=== PATIENT | male | born 1950 | race Caucasian/White ===

== ENCOUNTER 2019-03-11 17:38 | Emergency (ER) | payer MEDICARE, OTHER ==
[2019-03-11 17:55] VITALS: BP 131/77; PULSE 76
[2019-03-11] MEDS ORDERED: cefTRIAXone 2 GM in Sodium Chloride 0.9% 100 ML IV ONE (18:11)
[2019-03-11] MEDS ORDERED: Sodium Chloride 0.9% 10 ML Syringe FLUSH PRN (18:11)
[2019-03-11] MEDS ORDERED: Amoxicillin/Clavulanate K 875-125 MG Tab PO ONE (18:12)
[2019-03-11] MEDS ORDERED: HYDROmorphone 0.5 MG/0.5 ML Syringe IVPUSH ONE ×2 (18:12→19:10)
[2019-03-11] MEDS ORDERED: Ondansetron 4 MG/2 ML SDV IVPUSH ONE (18:12)
--- NOTE | 2019-03-11 18:16 | EDM.PDOC ---
ED HPI GENERAL MEDICAL PROBLEM - General Chief Complaint: Bite:Animal, Insect Stated Complaint: CAT BITE INFECTED Time Seen by Provider: 03/11/19 17:50 Source of Information: Reports: Patient, RN Notes Reviewed History Limitations: Reports: No Limitations - History of Present Illness INITIAL COMMENTS - FREE TEXT/NARRATIVE: Patient is a 68-year-old male who presents to the ED for evaluation of cat bites. He notes that Tuesday night he received some cat bites and scratches from their own cat. He went to the walk-in clinic yesterday and was prescribed a Z-Matt and some hydrocodone for pain management, but he states this is not helping at all. He was not able to sleep much at all due to the pain, and he noticed that the swelling is much more prominent today than it was yesterday. He states that his whole hand is throbbing and aching and he's noticed some redness moving up the arm with the pain moving up the arm as well. This does not extend past the elbow at this time. They note that their cat is up-to-date on its immunizations. Patient has not had any sort of fevers or chills at home , but he states he feels flushed. Right Hand Pain Score (Numeric/FACES): 10 - Related Data Allergies Allergy/AdvReac Type Severity Reaction Status Date / Time tramadol Allergy Disorientat Verified 10/04/16 13:26 ion morphine AdvReac Vomiting Verified 10/04/16 13:26 Home Meds: Home Meds Tamsulosin [Flomax] 1 tab PO DAILY 11/21/15 [History] Famotidine 20 mg PO BID 07/22/16 [History] Metoprolol Tartrate [Lopressor] 25 mg PO Q12HR 07/22/16 [History] amLODIPine [Norvasc] 5 mg PO DAILY 07/22/16 [History] atorvaSTATin [Lipitor] 40 mg PO BEDTIME 07/22/16 [History] Aspirin [[place] Aspirin] 81 mg PO DAILY 08/17/16 [History] Amoxicillin/Clavulanate K [Augmentin 875-125 MG] 1 tab PO BID #14 tablet [Rx] Past Medical History HEENT History: Reports: Cataract, Impaired Vision Cardiovascular History: Reports: Hypertension Other Cardiovascular History: Mild MR Gastrointestinal History: Reports: Diverticulosis Genitourinary History: Reports: UTI, Recurrent Other Musculoskeletal History: left hip pain. metatarsalgia right foot - 4 lumbar herniated disc Other Neuro History: Bilateral leg pain Endocrine/Metabolic History: Reports: Other (See Below) Other Endocrine/Metabolic History: prediabetes Oncologic (Cancer) History: Reports: Basal Cell Carcinoma Other Oncologic History: removal on nose - Infectious Disease History Infectious Disease History: Reports: Measles, Mumps - Past Surgical History HEENT Surgical History: Reports: Cataract Surgery, Tonsillectomy Cardiovascular Surgical History: Reports: None GI Surgical History: Reports: Colonoscopy, Hernia, Inguinal Musculoskeletal Surgical History: Reports: Joint Replacement Social & Family History - Family History Cardiac: Reports: CAD Other Cardiac Family History: father with CAD and brother with heart disease Other Oncologic Family History: brother with cancer - Tobacco Use Smoking Status *Q: Former Smoker Used Tobacco, but Quit: Yes Month/Year Tobacco Last Used: 3 - Caffeine Use Caffeine Use: Reports: Coffee, Soda, Tea - Recreational Drug Use Recreational Drug Use: No ED ROS GENERAL - Review of Systems Review Of Systems: See Below Constitutional: Denies: Fever, Chills HEENT: Reports: No Symptoms Respiratory: Denies: Shortness of Breath Cardiovascular: Denies: Chest Pain Endocrine: Reports: No Symptoms GI/Abdominal: Reports: Nausea. Denies: Abdominal Pain, Constipation, Diarrhea, Vomiting Musculoskeletal: Reports: Arm Pain (Right arm and hand) Skin: Reports: Erythema (R hand, with streaks extending up dorsum of forearm, these do not extend pass the elbow. 2+ swelling to dorsum of R hand.), Wound ( multiple healing cat scratches and bite wounds) Neurological: Denies: Numbness, Tingling Psychiatric: Reports: No Symptoms Hematologic/Lymphatic: Reports: No Symptoms ED EXAM, ANIMAL BITE - Physical Exam Exam: See Below Exam Limited By: No Limitations General Appearance: Alert, WD/WN, No Apparent Distress Respiratory/Chest: No Respiratory Distress, Lungs Clear, Normal Breath Sounds, No Accessory Muscle Use, Chest Non-Tender Cardiovascular: Normal Peripheral Pulses, Regular Rate, Rhythm, No Murmur Peripheral Pulses: 3+: Radial (L), Radial (R) Extremities: Normal Capillary Refill, Limited Range of Motion (of right hand d/ t pain and swelling.), Increased Warmth (R hand), Redness (R hand dorsum with streaks extending into forearm, these do not pass the elbow at this time.) Neurological: Alert, Oriented, Normal Cognition, No Motor/Sensory Deficits Psychiatric: Normal Affect, Normal Mood Skin Exam: Other (See extremities assessment) Course - Vital Signs Last Recorded V/S: Last Vital Signs Temp 98.6 F 03/11/19 17:54 Pulse 76 03/11/19 17:54 Resp 20 03/11/19 17:54 BP 131/77 03/11/19 17:54 Pulse Ox 93 L 03/11/19 17:54 - Orders/Labs/Meds Orders: Active Orders 24 hr Category Date Time Status Peripheral IV Care [RC] . DIRECTED Care 03/11/19 18:11 Ordered Sodium Chloride 0.9% [Saline Flush] Med 03/11/19 18:11 Ordered 10 ml FLUSH ASDIRECTED PRN Peripheral IV Insertion Adult [OM.PC] Stat Oth 03/11/19 18:11 Ordered Medication Orders Sodium Chloride (Saline Flush) 10 ml FLUSH ASDIRECTED PRN PRN Reason: Keep Vein Open Last Admin: 03/11/19 18:32 Dose: 10 ml Meds: Medications Generic Name Dose Route Start Last Admin Trade Name Freq PRN Reason Stop Dose Admin Sodium Chloride 10 ml 03/11/19 18:11 03/11/19 18:32 Saline Flush FLUSH 10 ml ASDIRECTED PRN Administration Keep Vein Open Discontinued Medications Generic Name Dose Route Start Last Admin Trade Name Freq PRN Reason Stop Dose Admin Amoxicillin/Clavulanate Potassium 1 tab 03/11/19 18:12 03/11/19 18:32 Augmentin 875 Mg/125 Mg PO 03/11/19 18:13 1 tab ONETIME ONE Administration Hydromorphone HCl 0.5 mg 03/11/19 18:12 03/11/19 18:32 Dilaudid IVPUSH 03/11/19 18:13 0.5 mg ONETIME ONE Administration Hydromorphone HCl 0.5 mg 03/11/19 19:10 Dilaudid IVPUSH 03/11/19 19:11 ONETIME ONE Ceftriaxone Sodium 2 gm/ 100 mls @ 200 mls/hr 03/11/19 18:11 03/11/19 18:32 Sodium Chloride IV 03/11/19 18:40 200 mls/hr ONETIME ONE Administration Ondansetron HCl 4 mg 03/11/19 18:12 03/11/19 18:34 Zofran IVPUSH 03/11/19 18:13 4 mg ONETIME ONE Administration - Re-Assessments/Exams Free Text/Narrative Re-Assessment/Exam: 03/11/19 18:19 Patient presents to the ED for evaluation of multiple Bites and scratches of his right hand. His dorsum of his right hand is impressively swollen, I appreciated at least a 2+ edema to the dorsum of the right hand. There are multiple cat bites and scratches that look as if they are healing. With red streaks extending up his arm but not passing the elbow. I will start an IV, give one dose of Rocephin, 2 g IV for initial management, 0.5 mg IV Dilaudid with 4 mg IV Zofran, and 1 tab of Augmentin PO. His allergy to morphine was vomiting. Will have him stop the azithromycin, and place him on Augmentin twice a day for 8 days, he will be given a prescription for oxycodone versus hydrocodone as he does not seem to respond to the hydrocodone medication. 03/11/19 19:11 Patient was reassessed at bedside, and states that he feels much better, and that the pain medication did wonders, however he is still having a little bit of pain, I did order another 0.5 mg of IV Dilaudid for pain relief, will send the patient home with a prescription for Augmentin, and oxycodone tablets for further pain relief. I have directed him if he does not notice the swelling and redness getting better in 2 days time, that he needs to seek care for reevaluation, he agrees and understands. Departure - Departure Time of Disposition: 19:15 Disposition: Home, Self-Care 01 Condition: Fair Clinical Impression: Infected cat bite of multiple sites of hand and fingers Qualifiers: Encounter type: initial encounter Laterality: right Qualified Code(s): S61.451A - Open bite of right hand, initial encounter; S61.259A - Open bite of unspecified finger without damage to nail, initial encounter; L08.9 - Local infection of the skin and subcutaneous tissue, unspecified; W55.01XA - Bitten by cat, initial encounter - Discharge Information *PRESCRIPTION DRUG MONITORING PROGRAM REVIEWED*: No *COPY OF PRESCRIPTION DRUG MONITORING REPORT IN PATIENT LAURA: No Prescriptions: Amoxicillin/Clavulanate K [Augmentin 875-125 MG] 1 tab PO BID #14 tablet Instructions: Animal Bite, Adult, [id number] Referrals: Myra Rhodes MD [Primary Care Provider] - Forms: ED Department Discharge Additional Instructions: You were evaluated in the ED today for your cat bite. You were given a dose of IV antibiotics, a dose of oral antibiotics, a IV pain medication and antinausea medication, this did seem to relieve some of your pain at this time. Please stop taking the Zithromax as previously prescribed, and start taking the Augmentin, 1 tab twice a day for 7 days. This antibiotic is well known for causing diarrhea, recommend to take a probiotic when taking this antibiotic. Was electronically sent to the [place] [facility] located in the [employer] store, you may pick this up tomorrow morning and continue taking this as directed. You were given a prescription for Percocet, 5/325, please take one tab every 6 hours as needed for further pain relief. If your swelling and/or redness are not getting much better in about 2 days time , or you develop any worsening symptoms like fevers or chills, increased nausea and vomiting, you will need to seek care for re-evaluation. Please return to the ED if your symptoms change or worsen. - My Orders Last 24 Hours: My Active Orders 03/11/19 18:11 Peripheral IV Care [RC] . DIRECTED Sodium Chloride 0.9% [Saline Flush] 10 ml FLUSH ASDIRECTED PRN Peripheral IV Insertion Adult [OM.PC] Stat - Assessment/Plan Last 24 Hours: My Active Orders 03/11/19 18:11 Peripheral IV Care [RC] . DIRECTED Sodium Chloride 0.9% [Saline Flush] 10 ml FLUSH ASDIRECTED PRN Peripheral IV Insertion Adult [OM.PC] Stat
== END 2019-03-11 19:30 | disposition home or self-care (01) ==
LOC: JD.ED 17:38
DX: S61.451A Open bite of right hand, initial encounter (principal); S61.259A Open bite of unspecified finger without damage to nail, initial encounter; L08.9 Local infection of the skin and subcutaneous tissue, unspecified; I10 Essential (primary) hypertension; F79 Unspecified intellectual disabilities; Z88.5 Allergy status to narcotic agent; Z85.9 Personal history of malignant neoplasm, unspecified; Z79.899 Other long term (current) drug therapy; Z79.82 Long term (current) use of aspirin; Z87.891 Personal history of nicotine dependence; W55.01XA Bitten by cat, initial encounter
CPT/HCPCS: 96365; 96375; 96376; 99283; A9270; J0696; J1170; J2405; J7030; 99284

== ENCOUNTER 2021-02-21 20:50 | Emergency (ER) | payer MEDICARE, OTHER ==
[2021-02-21 21:32] VITALS: BP 160/85; PULSE 80
[2021-02-21] MEDS ORDERED: methylPREDNISolone Sodium Succinate 125 MG/2 ML SDV IVPUSH ONE (21:42)
[2021-02-21] MEDS ORDERED: HYDROmorphone 0.5 MG/0.5 ML Syringe IVPUSH ONE ×2 (21:42→23:05)
[2021-02-21] MEDS ORDERED: Sodium Chloride 0.9% 10 ML Syringe FLUSH PRN (21:42)
[2021-02-21] MEDS ORDERED: Metoclopramide 10 MG/2 ML SDV IVPUSH ONE (21:43)
[2021-02-21] MEDS ORDERED: Ketorolac 30 MG/ML SDV IVPUSH SCH (21:45)
--- NOTE | 2021-02-21 21:45 | EDM.PDOC ---
ED HPI GENERAL MEDICAL PROBLEM - General Chief Complaint: Lower Extremity Injury/Pain Stated Complaint: LEFT ANKLE PAIN Time Seen by Provider: 02/21/21 21:36 Source of Information: Reports: Patient, Family (spouse) History Limitations: Reports: No Limitations - History of Present Illness INITIAL COMMENTS - FREE TEXT/NARRATIVE: 70-year-old male presents to the ED with acute severe left ankle pain. He states he rolled it slightly i.e. inversion injury while mowing the lawn yesterday but thought nothing of it. In fact he was able to continue mowing the lawn and walking normally until overnight when the pain in his left ankle became severe. He is unable to weight-bear at all and comes in on crutches. He gives a history of recurrent arthritic pain in both ankles and feet off and on for many years. He has never been diagnosed with gout. Onset: Today Onset Date: 02/21/21 Onset Time: 06:00 (Awoke with left ankle pain that is gradually progressed to severe pain with swelling bilaterally over the last 12 hours.) Duration: Hour(s):, Getting Worse Location: Reports: Lower Extremity, Left (Left ankle pain and swelling) Quality: Reports: Ache, Throbbing Severity: Severe Improves with: Reports: None, Rest Worsens with: Reports: Movement (Him to a move the ankle I dorsiflex or plantar flex causes severe pain rating up the anterior aspect of his suresh.) Context: Reports: Trauma (History of mild trauma yesterday with mild inversion of the ankle while mowing the lawn). Denies: Activity ( He comes in on crutches unable to weight-bear), Exercise, Lifting, Sick Contact, Other Associated Symptoms: Reports: No Other Symptoms Treatments POLICE SPECIALIST: Reports: Acetaminophen Left Ankle Pain Score (Numeric/FACES): 10 - Related Data Allergies Allergy/AdvReac Type Severity Reaction Status Date / Time tramadol Allergy Disorientat Verified 02/21/21 21:32 ion morphine AdvReac Vomiting Verified 02/21/21 21:32 Home Meds: Home Meds Tamsulosin [Flomax] 1 tab PO DAILY 11/21/15 [History] Famotidine 20 mg PO BID 07/22/16 [History] Metoprolol Tartrate [Lopressor] 25 mg PO DAILY 07/22/16 [History] amLODIPine [Norvasc] 5 mg PO DAILY 07/22/16 [History] atorvaSTATin [Lipitor] 40 mg PO BEDTIME 07/22/16 [History] Aspirin [[place] Aspirin] 81 mg PO DAILY 08/17/16 [History] oxyCODONE HCl/Acetaminophen [Percocet 5-325 mg Tablet] 1 - 2 each PO Q4H PRN #18 tablet 02/21/21 [Rx] predniSONE [Prednisone] 20 mg PO BID #10 tablet 02/21/21 [Rx] Past Medical History HEENT History: Reports: Cataract, Impaired Vision Cardiovascular History: Reports: Bypass (Triple bypass at the same time his valve replacement in 2017), Heart Valve Replacement (Aortic valve replaced), High Cholesterol, Hypertension, Other (See Below) Other Cardiovascular History: Mild MR, valve replacement Gastrointestinal History: Reports: Diverticulosis, GERD Genitourinary History: Reports: UTI, Recurrent, Other (See Below) Other Genitourinary History: fistula repair Other Musculoskeletal History: left hip pain. metatarsalgia right foot - 4 lumbar herniated disc Other Neuro History: Bilateral leg pain Endocrine/Metabolic History: Reports: Other (See Below) Other Endocrine/Metabolic History: prediabetes Oncologic (Cancer) History: Reports: Basal Cell Carcinoma Other Oncologic History: removal on nose - Infectious Disease History Infectious Disease History: Reports: Measles, Mumps - Past Surgical History HEENT Surgical History: Reports: Cataract Surgery, Tonsillectomy Cardiovascular Surgical History: Reports: None GI Surgical History: Reports: Colonoscopy, Hernia, Inguinal Musculoskeletal Surgical History: Reports: Joint Replacement Other Musculoskeletal Surgeries/Procedures:: right total knee replacement, right elbow repair Social & Family History - Family History Family Medical History: No Pertinent Family History Cardiac: Reports: CAD Other Cardiac Family History: father with CAD and brother with heart disease Other Oncologic Family History: brother with cancer - Tobacco Use Tobacco Use Status *Q: Never Tobacco User Second Hand Smoke Exposure: No - Caffeine Use Caffeine Use: Reports: Coffee - Alcohol Use Days Per Week of Alcohol Use: 1 Number of Drinks Per Day: 2 Total Drinks Per Week: 2 - Recreational Drug Use Recreational Drug Use: No - Living Situation & Occupation Living situation: Reports: Occupation: Retired Review of Systems - Review of Systems Review Of Systems: See Below Constitutional: Denies: Chills, Diaphoresis, Fever, Weakness, Other Eyes: Reports: Glasses Ears: Reports: No Symptoms Nose: Reports: No Symptoms Mouth/Throat: Reports: No Symptoms Respiratory: Reports: No Symptoms Cardiovascular: Denies: Chest Pain, Edema, Irregular Heart Rate, Lightheadedness, Other GI/Abdominal: Reports: No Symptoms Genitourinary: Reports: Other (BPH and is on medication for this. Nocturia x1) Musculoskeletal: Reports: Joint Pain (Arthritis knees hips lower back and neck at times), Other (Recurrent severe pain developing in both lower extremities off and on for many years.) Skin: Reports: No Symptoms Neurological: Reports: No Symptoms Psychiatric: Reports: No Symptoms ED EXAM, GENERAL - Physical Exam Exam: See Below Exam Limited By: No Limitations General Appearance: Alert, WD/WN, Mild Distress, Other (In obvious significant pain. Temperature is 36.1 degrees with a heart rate of 80 and sinus. Respiratory is 20 with O2 sats of 98% room air. BP is 160/85) Eye Exam: Bilateral Eye: Normal Inspection, PERRL Respiratory/Chest: No Respiratory Distress, Lungs Clear, Normal Breath Sounds, No Accessory Muscle Use Cardiovascular: Normal Peripheral Pulses, Regular Rate, Rhythm, No Edema, No Gallop, No Rub, Systolic Murmur (Very faint less than 1 out of 6 systolic ejection murmur best heard at the left lower sternal border), Other (Well-healed midline sternotomy incision.) Peripheral Pulses: 2+: Carotid (L), Carotid (R), Posterior Tibial (L), Posterior Tibial (R), Dorsalis Pedis (L), Dorsalis Pedis (R) GI/Abdominal: Normal Bowel Sounds, Soft, Non-Tender, No Organomegaly, No Distention, No Abnormal Bruit Extremities: Other (Examination of the left lower extremity reveals marked swelling bilateral aspect of the ankle which is mildly erythematous bilaterally and very very tender to touch. It is warm to palpation compatible with acute inflammation of gout) Neurological: Alert, Oriented, CN II-XII Intact, Normal Cognition Psychiatric: Anxious, Other Skin Exam: Warm (In a good deal of pain.), Dry, Intact, Normal Color, No Rash Course - Vital Signs Last Recorded V/S: Last Vital Signs Temp 36.1 C 02/21/21 21: Pulse 80 02/21/21 21:31 Resp 20 02/21/21 21: BP 160/85 H 09/18/21 21:31 Pulse Ox 98 02/21/21 21:31 - Orders/Labs/Meds Orders: Active Orders 24 hr Category Date Time Status Ankle Min 3V Lt [CR] Stat Exams 02/21/21 21:43 Taken Peripheral IV Insertion Adult [OM.PC] Stat Oth 02/21/21 21:42 Ordered Labs: Laboratory Tests 02/21/21 02/21/21 Range/Units 22:35 22:35 WBC 11.98 H (4.23-9.07) K/mm3 RBC 4.33 L (4.63-6.08) M/mm3 Hgb 13.5 L (13.7-17.5) gm/dl Hct 40.2 (40.1-51.0) % MCV 92.8 H (79.0-92.2) fl MCH 31.2 (25.7-32.2) pg MCHC 33.6 (32.2-35.5) g/dl RDW Std Deviation 45.9 H (35.1-43.9) fL Plt Count 165 (163-337) K/mm3 MPV 10.1 (9.4-12.3) fl Neut % (Auto) 70.0 H (34.0-67.9) % Lymph % (Auto) 16.4 L (21.8-53.1) % [place] % (Auto) 11.6 (5.3-12.2) % Eos % (Auto) 1.5 (0.8-7.0) Baso % (Auto) 0.3 (0.1-1.2) % Neut # (Auto) 8.39 H (1.78-5.38) K/mm3 Lymph # (Auto) 1.96 (1.32-3.57) K/mm3 [place] # (Auto) 1.39 H (0.30-0.82) K/mm3 Eos # (Auto) 0.18 (0.04-0.54) K/mm3 Baso # (Auto) 0.04 (0.01-0.08) K/mm3 Sodium 137 (136-145) mEq/L Potassium 4.1 (3.5-5.1) mEq/L Chloride 104 (98-107) mEq/L Carbon Dioxide 26 (21-32) mEq/L Anion Gap 11.1 (5-15) BUN 16 (7-18) mg/dL Creatinine 0.9 (0.7-1.3) mg/dL Est Cr Clr Drug Dosing 86.26 mL/min Estimated GFR (MDRD) > 60 (>60) mL/min BUN/Creatinine Ratio 17.8 (14-18) Glucose 118 H (70-99) mg/dL Uric Acid 6.9 (3.5-7.2) mg/dL Calcium 8.2 L (8.5-10.1) mg/dL Total Bilirubin 0.3 (0.2-1.0) mg/dL AST 21 (15-37) U/L ALT 27 (16-63) U/L Alkaline Phosphatase 62 (46-116) U/L C-Reactive Protein 0.7 (<1.0) mg/dL Total Protein 6.9 (6.4-8.2) g/dl Albumin 3.3 L (3.4-5.0) g/dl Globulin 3.6 gm/dL Albumin/Globulin Ratio 0.9 L (1-2) Meds: Medications Discontinued Medications Generic Name Dose Route Start Last Admin Trade Name Freq PRN Reason Stop Dose Admin Colchicine 0.6 mg 02/21/21 21:49 02/21/21 22:24 Colchicine 0.6 Mg Tab PO 02/21/21 21:50 0.6 mg ONETIME ONE Administration Colchicine 0.6 mg 02/21/21 23:02 02/21/21 23:11 Colchicine 0.6 Mg Tab PO 02/21/21 23:03 0.6 mg ONETIME ONE Administration Colchicine 0.6 mg 02/21/21 23:32 02/21/21 23:41 Colchicine 0.6 Mg Tab PO 02/21/21 23:33 0.6 mg ONETIME ONE Administration Hydromorphone HCl 0.5 mg 02/21/21 21:42 02/21/21 22:19 Hydromorphone 0.5 Mg/0.5 Ml Syringe IVPUSH 02/21/21 21:43 0.5 mg ONETIME ONE Administration Hydromorphone HCl 0.5 mg 02/21/21 23:05 02/21/21 23:10 Hydromorphone 0.5 Mg/0.5 Ml Syringe IVPUSH 02/21/21 23:06 0.5 mg ONETIME ONE Administration Ketorolac Tromethamine 30 mg 02/21/21 21:45 02/21/21 22:24 Ketorolac 30 Mg/Ml Sdv IVPUSH 30 mg ONETIME STAN Administration Methylprednisolone Sodium Succinate 125 mg 02/21/21 21:42 02/21/21 22:21 Methylprednisolone Sodium Succinate 125 Mg/2 Ml Sdv IVPUSH 02/21/21 21:43 125 mg ONETIME ONE Administration Metoclopramide HCl 7.5 mg 02/21/21 21:43 02/21/21 22:21 Metoclopramide 10 Mg/2 Ml Sdv IVPUSH 02/21/21 21:44 7.5 mg ONETIME ONE Administration Sodium Chloride 10 ml 02/21/21 21:42 02/21/21 22:25 Sodium Chloride 0.9% 10 Ml Syringe FLUSH 10 ml ASDIRECTED PRN Administration Keep Vein Open - Radiology Interpretation Free Text/Narrative:: 70-year-old male presents to the ED with acute onset of severe pain left ankle with marked swelling bilaterally. He states yesterday while mowing the lawn he had a mild inversion injury to the left ankle. He thought nothing of it and was able to continue mowing the lawn and walking. Pain developed overnight and was severe by 0600 hrs. this morning. Since that time the pain is even worsened as has the swelling of his left ankle. He cannot walk on it at all and comes in on crutches. Gives a history of recurrent similar type pains in both ankles and feet off and on for many years. Blamed it on arthritis flares. On examination the left ankle is markedly swollen both medially and laterally. He has severe pain with any attempt to dorsiflex or plantarflex the ankle. No pain over the metacarpal joints. No pain of the distal tib-fib. Clinically has acute gouty arthritis left ankle. He will receive intravenous medications Dilaudid 0.5 mg IV with Toradol 30 mg IV and Reglan 7.5 mg IV. He will receive first dose of cord colchicine 0.6 mg orally in the ED. He will also be given a dose of Solu- Medrol 125 mg IV. An x-ray of his ankle will be done. - Re-Assessments/Exams Free Text/Narrative Re-Assessment/Exam: 02/21/21 22:55 Hematology reveals a white count 11.98. The differential shows 70% neutrophils. Hemoglobin is 13.5 with hematocrit of 40.2. MCV is 92.8 sli ghtly elevated. Platelet count is 165,000. 02/21/21 23:05 x-rays of the left ankle reveal the bones to be fairly osteopenic. No fractures are identified although there are several old fractures of the distal lateral malleolus from previous injuries. We will repeat Dilaudid 0.5 mg IV for pain relief and he will receive second dose of colchicine 0.6 mg by mouth. Plan will be to send him home with a third dose of colchicine 0.6 mg to take in an hour. Percocet tabs 5 to 25 mg strength 1 or 2 every 4-6 hours needed for pain relief. Prednisone 20 mg twice daily for 5 days and then once in the morning only for another 5 days. Motrin 600 mg every 6 hours to relieve pain and inflammation until better. He already has crutches and will be nonweightbearing until able to weight-bear which will likely be 72 hours. 02/21/21 23:42 Chemistry reveals a sodium of 137 and potassium of 4.1. Chloride is 1 4 with a bicarb of 26. Anion gap is 11.1. BUN is 16 with a creatinine of 0.9 and a GFR greater than 60. Glucose is 118. Uric acid is normal at 6.9. Calcium slightly low at 8.2 liver function is normal. C- reactive protein 0.7 with a total protein of 6.9 and albumin fraction of 3.3. I have discussed the findings with the patient and his . Ankle is feeling better after second dose of Dilaudid. He has completed 3 doses of colchicine 0.6 mg by mouth. He will be discharged home on prednisone 20 mg twice daily for 5 days out of the [employer] machine and Percocet tabs 5/325 mg strength 1 or 2 every 4-6 hours necessary for pain relief over the next few days. Advised Motrin 600 mg every 6 hours until pain is better ideally switching to Aleve 2 tablets every 8 hours to complete a 7-day course of anti-inflammatory treatment. He needs a repeat uric acid level done when he is not experiencing an acute gout attack to see if he would benefit from medication to reduce uric acid formation such as Uloric acid or allopurinol. Departure - Departure Time of Disposition: 23:36 Disposition: Home, Self-Care 01 Condition: Fair Clinical Impression: Gout attack Qualifiers: Gout site: ankle Gout etiology: unspecified cause Laterality: left Qualified C ode(s): M10.9 - Gout, unspecified - Discharge Information *PRESCRIPTION DRUG MONITORING PROGRAM REVIEWED*: Not Applicable *COPY OF PRESCRIPTION DRUG MONITORING REPORT IN PATIENT LAURA: Not Applicable Prescriptions: oxyCODONE HCl/Acetaminophen [Percocet 5-325 mg Tablet] 1 - 2 each PO Q4H PRN #18 tablet PRN Reason: pain relief. predniSONE [Prednisone] 20 mg PO BID #10 tablet Instructions: Crutch Use, Adult, [id number], Low-Purine Eating Plan, Gout, [id number] Referrals: Myra Rhodes MD [Primary Care Provider] - Forms: ED Department Discharge Additional Instructions: Evaluation in the emergency room tonight in regards to acute onset of severe pain and swelling with increased warmth and tenderness of the left ankle joint after minor trauma yesterday. History suggest you have had recurrent bouts of inflammation in your ankles and feet several times over the last several years. Examination today reveals acute gouty arthritis attack involving the left ankle causing severe pain. X-rays of the left foot reveal that the bones are relatively thin which we call osteopenia but no fractures are evident other than some old minor fractures off the lateral ankle bone from previous injuries. You were treated with colchicine 0.6 mg tablet 1 every hour for 3 consecutive hours . You took the last tablet just prior to leaving the ER tonight. You will need to start prednisone 20 mg tablets in the morning usually with breakfast and supper for 5 days to relieve inflammation and pain left ankle. Pain medication is to be Percocet tabs 5/325 mg strength 1 or 2 every 4-6 hours as needed for pain relief with little food in your stomach. Use Motrin 600 mg every 6 hours for 3 days and then 600 mg every 8 hours or Aleve 2 tablets every 8 hours for 4 more days to prevent gout from reoccurring. Expect marked improvement over the next 24 hours such as 70% reduction in pain and swelling 90% within the next 48 hours. Uric acid level today was upper limits of normal at 6.9 but it often does go lower during an acute gout attack. The next time you need lab work done in the clinic asked to have a uric acid level checked. Sepsis Event Note (ED) - Focused Exam Vital Signs: Vital Signs Temp Pulse Resp BP Pulse Ox 02/21/21 21:31 36.1 C 80 20 160/85 H 98 - My Orders Last 24 Hours: My Active Orders 02/21/21 21:42 Peripheral IV Insertion Adult [OM.PC] Stat 02/21/21 21:43 Ankle Min 3V Lt [CR] Stat - Assessment/Plan Last 24 Hours: My Active Orders 02/21/21 21:42 Peripheral IV Insertion Adult [OM.PC] Stat 02/21/21 21:43 Ankle Min 3V Lt [CR] Stat
[2021-02-21] MEDS ORDERED: Colchicine 0.6 MG Tab PO ONE ×3 (21:49→23:32)
--- NOTE | 2021-02-22 16:33 | CR ---
Left ankle: 3 views of the left ankle were obtained. Comparison: No prior left ankle study is available. Joint space narrowing is seen within the lateral tibiotalar joint. Slight spurring is noted within the tibiotalar joint. Bony densities are noted off the medial malleolus compatible with old injury. Bony density is seen off the distal fibula compatible with old injury. Calcifications are seen within the soft tissues above the ankle presumably dystrophic. Slight osteopenia is present. No definite acute osseous abnormality is appreciated. Diffuse soft tissue swelling is noted. Impression: 1. Degenerative change as noted above. 2. Small dystrophic soft tissue calcifications. 3. Diffuse soft tissue swelling. 4. Findings of old injury as noted above. Diagnostic code #3
== END 2021-02-21 23:58 | disposition home or self-care (01) ==
LOC: JD.ED 20:50
DX: M10.9 Gout, unspecified (principal); E78.00 Pure hypercholesterolemia, unspecified; I10 Essential (primary) hypertension; Z95.1 Presence of aortocoronary bypass graft; Z88.5 Allergy status to narcotic agent; Z79.82 Long term (current) use of aspirin; Z79.899 Other long term (current) drug therapy
CPT/HCPCS: 36415; 73610; 80053; 84550; 85025; 86140; 96374; 96375; 96376; 99283; A9270; J1170; J1885; J2765; J2930

== ENCOUNTER 2021-10-30 13:18 | Emergency (ER) | payer MEDICARE, OTHER ==
[2021-10-30 15:27] VITALS: PULSE 54
[2021-10-30] MEDS ORDERED: Sodium Chloride 0.9% 10 ML Syringe FLUSH PRN (15:30)
[2021-10-30] MEDS ORDERED: EPINEPHrine 1 MG/ML SDV IM PRN (15:31)
[2021-10-30] MEDS ORDERED: Famotidine 20 MG/2 ML SDV IVPUSH PRN (15:31)
[2021-10-30] MEDS ORDERED: methylPREDNISolone Sodium Succinate 125 MG/2 ML SDV IVPUSH PRN (15:31)
[2021-10-30] MEDS ORDERED: diphenhydrAMINE 50 MG/ML SDV IVPUSH PRN (15:31)
[2021-10-30] MEDS ORDERED: Sodium Chloride 0.9% 10 ML Syringe FLUSH SCH (15:45)
[2021-10-30 17:09] VITALS: BP 155/72
== END 2021-10-30 17:14 | disposition home or self-care (01) ==
LOC: JD.ED 13:18
DX: U07.1 COVID-19 (principal); R07.89 Other chest pain; E78.00 Pure hypercholesterolemia, unspecified; I10 Essential (primary) hypertension; Z88.5 Allergy status to narcotic agent; Z79.82 Long term (current) use of aspirin; Z79.899 Other long term (current) drug therapy; Z86.16 Personal history of COVID-19; Z87.891 Personal history of nicotine dependence
CPT/HCPCS: 93005; 99284; J3490; M0222; Q0222; 93010; 99282

== ENCOUNTER 2024-06-26 15:50 | Emergency (ER) | payer MEDICARE, OTHER ==
[2024-06-26 16:17] VITALS: BP 137/81; PULSE 118
[2024-06-26 17:02] LABS: APPEARANCE,URINE CLOUDY (Clear); BILIRUBIN,URINE 1+ (Negative); COLOR,URINE RED (Yellow); GLUCOSE,URINE NEGATIVE (Negative); KETONES,URINE NEGATIVE (Negative); LEUKOCYTE ESTERASE,URINE NEGATIVE (Negative); NITRITE,URINE NEGATIVE (Negative); OCCULT BLOOD,URINE 3+ (Negative); PROTEIN,URINE 3+ (Negative)
[2024-06-26 17:14] LABS: BASOPHILS PERCENT AUTO 0.2 % (0.0-1.0); EOSINOPHILS ABSOLUTE AUTO 0.1 K/mm3 (0.0-0.4); EOSINOPHILS PERCENT AUTO 0.9 % (0.0-6.0); HEMATOCRIT 24.2 % (42.0-52.0); HEMOGLOBIN 8.1 gm/dl (14.0-18.0); IMMATURE GRAN ABSOLUTE AUTO 0.06 K/mm3 (0.00-0.05); IMMATURE GRAN PERCENT AUTO 0.5 % (0.0-0.4); LYMPHOCYTES ABSOLUTE AUTO 1.3 K/mm3 (1.0-4.8); LYMPHOCYTES PERCENT AUTO 10.3 % (24.0-44.0); MEAN CORPUSCULAR HEMOGLOBIN 30.3 pg (28.0-32.0); MEAN CORPUSCULAR HGB CONC 33.5 g/dl (32.0-36.0); MEAN CORPUSCULAR VOLUME 90.6 fl (83.0-99.0); MEAN PLATELET VOLUME 9.1 fl (9.4-12.4); MONOCYTES ABSOLUTE AUTO 1.8 K/mm3 (0.0-0.8); MONOCYTES PERCENT AUTO 13.8 % (0.0-8.0); NEUTROPHILS ABSOLUTE AUTO 9.6 K/mm3 (1.8-7.7); NEUTROPHILS PERCENT AUTO 74.3 % (41.0-71.0); PLATELET COUNT,PLT 324 K/mm3 (150-400); RED BLOOD CELL COUNT 2.67 M/mm3 (4.52-5.90); WHITE BLOOD CELL COUNT,WBC 12.88 K/mm3 (3.9-11.3)
[2024-06-26 17:41] LABS: RBC,URINE TOO NUMEROUS TO CNT /hpf (0-5); SQUAMOUS EPITHELIAL CELLS,UR 0-5 /hpf (0-5)
[2024-06-26 17:42] LABS: BACTERIA,URINE FEW /hpf (FEW); MUCUS,URINE FEW /hpf (FEW)
[2024-06-26 17:44] LABS: A/G RATIO 0.6 (1-2); ALBUMIN 2.5 g/dl (3.4-5.0); ANION GAP 15.5 (5-15); BILIRUBIN TOTAL 1.1 mg/dL (0.2-1.0); C-REACTIVE PROTEIN 14.88 mg/dL (<0.30); CALCIUM 8.6 mg/dL (8.5-10.1); CREATININE 1.1 mg/dL (0.7-1.3); EST CRCL DRUG DOSING (CG) 65.57 mL/min; POTASSIUM,K 3.5 mEq/L (3.5-5.1); PROTEIN TOTAL,TP 6.5 g/dl (6.4-8.2)
[2024-06-26] MEDS: cefTRIAXone 2 GM in Sodium Chloride 0.9% 100 ML IV ONE (18:06)
[2024-06-26] MEDS: fentaNYL 100 MCG/2 ML SDV IVPUSH ONE ×2 (18:06→19:04)
[2024-06-26] MEDS: Sodium Chloride 0.9% 1,000 ML IV SCH (18:07)
[2024-06-26] MEDS ORDERED: Naloxone 0.4 MG/ML SDV IVPUSH PRN (18:54)
[2024-06-26] MEDS: Bisacodyl 10 MG Supp RECTAL ONE (19:04)
== END 2024-06-26 19:30 | disposition home or self-care (01) ==
LOC: JD.ED 15:50
DX: N39.0 Urinary tract infection, site not specified (principal); R31.9 Hematuria, unspecified; I10 Essential (primary) hypertension; E78.00 Pure hypercholesterolemia, unspecified; Z86.16 Personal history of COVID-19; Z95.2 Presence of prosthetic heart valve; Z88.5 Allergy status to narcotic agent; Z79.82 Long term (current) use of aspirin; Z79.899 Other long term (current) drug therapy
CPT/HCPCS: 36415; 80053; 81001; 83605; 85025; 86140; 87086; 87428-QW; 93005; 96361; 96365; 96375; 96376; 99285-25; A9270-GY; C1758; J0696; J3010; J7030

== ENCOUNTER 2024-06-28 16:37 | Emergency (ER) | payer MEDICARE, OTHER ==
[2024-06-28 16:54] VITALS: BP 130/73; PULSE 113
[2024-06-28] MEDS: Lidocaine 2% 11 ML Jelly Filled Syringe MUCMEM ONE (18:00)
[2024-06-28 18:05] LABS: BASOPHILS ABSOLUTE AUTO 0.1 K/mm3 (0.0-0.2); BASOPHILS PERCENT AUTO 0.3 % (0.0-1.0); EOSINOPHILS ABSOLUTE AUTO 0.3 K/mm3 (0.0-0.4); EOSINOPHILS PERCENT AUTO 1.8 % (0.0-6.0); HEMATOCRIT 23.2 % (42.0-52.0); HEMOGLOBIN 7.9 gm/dl (14.0-18.0); IMMATURE GRAN ABSOLUTE AUTO 0.13 K/mm3 (0.00-0.05); IMMATURE GRAN PERCENT AUTO 0.7 % (0.0-0.4); LYMPHOCYTES ABSOLUTE AUTO 1.6 K/mm3 (1.0-4.8); LYMPHOCYTES PERCENT AUTO 8.9 % (24.0-44.0); MEAN CORPUSCULAR HEMOGLOBIN 30.9 pg (28.0-32.0); MEAN CORPUSCULAR HGB CONC 34.1 g/dl (32.0-36.0); MEAN CORPUSCULAR VOLUME 90.6 fl (83.0-99.0); MEAN PLATELET VOLUME 8.9 fl (9.4-12.4); MONOCYTES ABSOLUTE AUTO 2.1 K/mm3 (0.0-0.8); MONOCYTES PERCENT AUTO 11.3 % (0.0-8.0); RED BLOOD CELL COUNT 2.56 M/mm3 (4.52-5.90); WHITE BLOOD CELL COUNT,WBC 18.16 K/mm3 (3.9-11.3)
[2024-06-28 18:27] LABS: A/G RATIO 0.6 (1-2); ALBUMIN 2.5 g/dl (3.4-5.0); ANION GAP 13.5 (5-15); BUN/CREATININE RATIO 10.6 (14-18); C-REACTIVE PROTEIN 15.84 mg/dL (<0.30); CALCIUM 8.4 mg/dL (8.5-10.1); CREATININE 1.6 mg/dL (0.7-1.3); EST CRCL DRUG DOSING (CG) 45.08 mL/min; PLATELET COUNT,PLT 442 K/mm3 (150-400); POTASSIUM,K 3.5 mEq/L (3.5-5.1); PROTEIN TOTAL,TP 6.4 g/dl (6.4-8.2)
[2024-06-28 18:49] LABS: APPEARANCE,URINE SLT CLOUDY (Clear); BILIRUBIN,URINE NEGATIVE (Negative); COLOR,URINE YELLOW (Yellow); GLUCOSE,URINE NEGATIVE (Negative); KETONES,URINE NEGATIVE (Negative); LEUKOCYTE ESTERASE,URINE NEGATIVE (Negative); NITRITE,URINE NEGATIVE (Negative); OCCULT BLOOD,URINE 3+ (Negative); PROTEIN,URINE 1+ (Negative); UROBILINOGEN,URINE 0.2 (0.2-1.0)
[2024-06-28 18:58] LABS: INR 1.03; PROTHROMBIN TIME 10.9 SECONDS (9.7-12.0)
[2024-06-28 18:59] LABS: PTT,PARTIAL THROMBOPLSTIN TIME 24.9 SECONDS (21.7-31.4)
[2024-06-28 19:04] LABS: BACTERIA,URINE RARE /hpf (FEW); EPITHELIAL CELLS,URINE NOT SEEN /hpf (0-5); MUCUS,URINE NOT SEEN /hpf (FEW); RBC,URINE >100 /hpf (0-5); WBC,URINE 0-5 /hpf (0-5)
[2024-06-28] MEDS: Sodium Chloride 0.9% 1,000 ML IV ONE (19:04)
[2024-06-28] MEDS: Iopamidol 612 MG/ML 100 ML Bottle IVPUSH ONE (19:24)
[2024-06-28] MEDS: cefTRIAXone 2 GM Vial IVPUSH ONE (19:45)
[2024-06-28 20:22] LABS: LACTIC ACID 1.3 mmol/L (0.4-2.0)
[2024-06-28] MEDS ORDERED: Naloxone 0.4 MG/ML SDV IVPUSH PRN (21:25)
[2024-06-28] MEDS: fentaNYL 100 MCG/2 ML SDV IVPUSH ONE (21:33)
[2024-06-29] MEDS: fentaNYL 100 MCG/2 ML SDV IVPUSH ONE (02:05)
[2024-06-29] MEDS: Acetaminophen 325 MG Tab PO ONE (04:42)
[2024-06-29 05:35] LABS: ANION GAP 13.4 (5-15); BUN/CREATININE RATIO 13.3 (14-18); CALCIUM 8.4 mg/dL (8.5-10.1); CREATININE 0.9 mg/dL (0.7-1.3); EST CRCL DRUG DOSING (CG) 80.15 mL/min; POTASSIUM,K 3.4 mEq/L (3.5-5.1)
[2024-06-29 05:36] LABS: BASOPHILS ABSOLUTE AUTO 0.1 K/mm3 (0.0-0.2); BASOPHILS PERCENT AUTO 0.4 % (0.0-1.0); EOSINOPHILS ABSOLUTE AUTO 0.3 K/mm3 (0.0-0.4); EOSINOPHILS PERCENT AUTO 1.8 % (0.0-6.0); HEMATOCRIT 23.8 % (42.0-52.0); IMMATURE GRAN ABSOLUTE AUTO 0.14 K/mm3 (0.00-0.05); IMMATURE GRAN PERCENT AUTO 0.9 % (0.0-0.4); LYMPHOCYTES ABSOLUTE AUTO 1.6 K/mm3 (1.0-4.8); LYMPHOCYTES PERCENT AUTO 9.8 % (24.0-44.0); MEAN CORPUSCULAR HEMOGLOBIN 30.7 pg (28.0-32.0); MEAN CORPUSCULAR HGB CONC 33.6 g/dl (32.0-36.0); MEAN CORPUSCULAR VOLUME 91.2 fl (83.0-99.0); MEAN PLATELET VOLUME 8.8 fl (9.4-12.4); MONOCYTES ABSOLUTE AUTO 1.7 K/mm3 (0.0-0.8); MONOCYTES PERCENT AUTO 10.6 % (0.0-8.0); NEUTROPHILS ABSOLUTE AUTO 12.2 K/mm3 (1.8-7.7); NEUTROPHILS PERCENT AUTO 76.5 % (41.0-71.0); PLATELET COUNT,PLT 445 K/mm3 (150-400); RED BLOOD CELL COUNT 2.61 M/mm3 (4.52-5.90); WHITE BLOOD CELL COUNT,WBC 15.98 K/mm3 (3.9-11.3)
[2024-06-29 06:21] LABS: SLIDE REVIEW ABNORMAL SMEAR
== END 2024-06-29 07:44 | disposition home or self-care (01) ==
LOC: JD.ED 16:37
DX: K59.00 Constipation, unspecified (principal); R33.9 Retention of urine, unspecified; G89.18 Other acute postprocedural pain; M54.9 Dorsalgia, unspecified; D64.9 Anemia, unspecified; N28.89 Other specified disorders of kidney and ureter; D72.829 Elevated white blood cell count, unspecified; I10 Essential (primary) hypertension; E78.00 Pure hypercholesterolemia, unspecified; Z86.16 Personal history of COVID-19; K21.9 Gastro-esophageal reflux disease without esophagitis; Z79.899 Other long term (current) drug therapy; Z79.82 Long term (current) use of aspirin
CPT/HCPCS: 36415; 51702; 71045; 74177; 80048; 80053; 81001; 83605; 85025; 85610; 85730; 86140; 87040; 87428; 96361; 96374; 96375; 96376; 99284; A9270; J0696; J3010; J7030; Q9967

== ENCOUNTER 2024-07-17 20:18 | Inpatient (IN) | payer MEDICARE, OTHER ==
[2024-07-17 21:16] LABS: BASOPHILS ABSOLUTE AUTO 0.1 K/mm3 (0.0-0.2); BASOPHILS PERCENT AUTO 0.3 % (0.0-1.0); HEMATOCRIT 32.9 % (42.0-52.0); IMMATURE GRAN ABSOLUTE AUTO 0.06 K/mm3 (0.00-0.05); IMMATURE GRAN PERCENT AUTO 0.3 % (0.0-0.4); LYMPHOCYTES ABSOLUTE AUTO 1.3 K/mm3 (1.0-4.8); LYMPHOCYTES PERCENT AUTO 7.1 % (24.0-44.0); MEAN CORPUSCULAR HEMOGLOBIN 28.4 pg (28.0-32.0); MEAN CORPUSCULAR HGB CONC 31.6 g/dl (32.0-36.0); MEAN CORPUSCULAR VOLUME 89.9 fl (83.0-99.0); MEAN PLATELET VOLUME 10.4 fl (9.4-12.4); MONOCYTES ABSOLUTE AUTO 1.7 K/mm3 (0.0-0.8); MONOCYTES PERCENT AUTO 9.5 % (0.0-8.0); NEUTROPHILS ABSOLUTE AUTO 14.8 K/mm3 (1.8-7.7); NEUTROPHILS PERCENT AUTO 82.8 % (41.0-71.0); RED BLOOD CELL COUNT 3.66 M/mm3 (4.52-5.90); WHITE BLOOD CELL COUNT,WBC 17.94 K/mm3 (3.9-11.3)
[2024-07-17 21:30] LABS: HEMOGLOBIN 10.4 gm/dl (14.0-18.0); PLATELET COUNT,PLT 191 K/mm3 (150-400)
[2024-07-17 21:33] LABS: A/G RATIO 0.7 (1-2); ALBUMIN 2.9 g/dl (3.4-5.0); ANION GAP 15.2 (5-15); BILIRUBIN TOTAL 0.5 mg/dL (0.2-1.0); BUN/CREATININE RATIO 12.5 (14-18); CALCIUM 8.6 mg/dL (8.5-10.1); CREATININE 1.2 mg/dL (0.7-1.3); EST CRCL DRUG DOSING (CG) 59.19 mL/min; POTASSIUM,K 4.2 mEq/L (3.5-5.1)
[2024-07-17] MEDS: Ketorolac 15 MG/ML SDV IVPUSH ONE (21:37)
[2024-07-17] MEDS: Sodium Chloride 0.9% 1,000 ML IV ONE (21:38)
[2024-07-17 21:39] LABS: LACTIC ACID 2.3 mmol/L (0.4-2.0)
[2024-07-17] MEDS: Sodium Chloride 0.9% 10 ML Syringe FLUSH PRN (21:41)
[2024-07-17 22:05] LABS: APPEARANCE,URINE TURBID (Clear); BILIRUBIN,URINE NEGATIVE (Negative); COLOR,URINE YELLOW (Yellow); GLUCOSE,URINE NEGATIVE (Negative); KETONES,URINE NEGATIVE (Negative); LEUKOCYTE ESTERASE,URINE 2+ (Negative); NITRITE,URINE POSITIVE (Negative); OCCULT BLOOD,URINE 3+ (Negative); PROTEIN,URINE 3+ (Negative); UROBILINOGEN,URINE 0.2 (0.2-1.0)
[2024-07-17 22:06] LABS: SLIDE REVIEW ABNORMAL SMEAR
[2024-07-17] MEDS: cefTRIAXone 1 GM Vial IVPUSH ONE (22:14)
[2024-07-17 22:26] LABS: WBC,URINE TOO NUMEROUS TO CNT /hpf (0-5)
[2024-07-17 22:27] LABS: BACTERIA,URINE FEW /hpf (FEW); EPITHELIAL CELLS,URINE 0-5 /hpf (0-5); MUCUS,URINE FEW /hpf (FEW); RBC,URINE 20-30 /hpf (0-5)
[2024-07-17] MEDS: Iopamidol 612 MG/ML 100 ML Bottle IVPUSH ONE (23:08)
[2024-07-17] MEDS: Sodium Chloride 0.9% 500 ML IV ONE (23:42)
[2024-07-18] MEDS: LORazepam 2 MG/ML SDV IVPUSH ONE (01:32)
[2024-07-18] MEDS: Sodium Chloride 0.9% 500 ML IV ONE (01:33)
[2024-07-18] MEDS ORDERED: Polyethylene Glycol 3350 Powder 17 GM Packet PO PRN (07:39)
[2024-07-18] MEDS ORDERED: Melatonin 3 MG Tab PO PRN (07:39)
[2024-07-18] MEDS: cefTRIAXone 1 GM Vial IVPUSH ONE (09:33)
[2024-07-18] MEDS ORDERED: Docusate Sodium 100 MG Cap PO PRN (09:43)
[2024-07-18] MEDS: Acyclovir 200 MG Cap PO SCH (10:27)
[2024-07-18] MEDS: Tamsulosin 0.4 MG Cap.ER PO SCH (10:27)
[2024-07-18] MEDS: Enoxaparin 40 MG/0.4 ML Syringe SUBCUT SCH (10:28)
[2024-07-18] MEDS: oxyCODONE 5 MG Tab PO PRN (10:28)
[2024-07-18] MEDS: Metoprolol Succinate 25 MG Tab.ER PO SCH (10:30)
[2024-07-18] MEDS: Aspirin 81 MG Tab.Chew PO SCH (10:30)
[2024-07-18] MEDS: Polyethylene Glycol 3350 Powder 17 GM Packet PO SCH (10:37)
[2024-07-18] MEDS: Sodium Chloride 0.9% 1,000 ML IV SCH (11:36)
[2024-07-18] MEDS: Ondansetron 4 MG/2 ML SDV IV PRN (18:49)
[2024-07-18] MEDS: atorvaSTATin 40 MG Tab PO SCH (20:41)
[2024-07-18] MEDS: Cyclobenzaprine 10 MG Tab PO PRN (20:43)
[2024-07-18] MEDS: Famotidine 20 MG Tab PO SCH (20:43)
[2024-07-18] MEDS: cefTRIAXone 2 GM Vial IVPUSH SCH (20:44)
[2024-07-18] MEDS: Sennosides 8.6 MG Tab PO SCH (20:44)
[2024-07-18] MEDS: Diclofenac Sodium 1% Gel 100 GM Tube TOP SCH (23:00)
[2024-07-19] MEDS ORDERED: Naloxone 0.4 MG/ML SDV IVPUSH PRN (00:47)
[2024-07-19] MEDS: Morphine 2 MG/ML SYRINGE IVPUSH PRN (01:11)
[2024-07-19 04:47] LABS: BASOPHILS ABSOLUTE AUTO 0.1 K/mm3 (0.0-0.2); BASOPHILS PERCENT AUTO 0.3 % (0.0-1.0); EOSINOPHILS ABSOLUTE AUTO 0.1 K/mm3 (0.0-0.4); EOSINOPHILS PERCENT AUTO 0.3 % (0.0-6.0); HEMATOCRIT 27.6 % (42.0-52.0); HEMOGLOBIN 8.9 gm/dl (14.0-18.0); IMMATURE GRAN ABSOLUTE AUTO 0.11 K/mm3 (0.00-0.05); IMMATURE GRAN PERCENT AUTO 0.6 % (0.0-0.4); LYMPHOCYTES ABSOLUTE AUTO 1.3 K/mm3 (1.0-4.8); LYMPHOCYTES PERCENT AUTO 7.3 % (24.0-44.0); MEAN CORPUSCULAR HGB CONC 32.2 g/dl (32.0-36.0); MEAN CORPUSCULAR VOLUME 89.9 fl (83.0-99.0); MEAN PLATELET VOLUME 10.4 fl (9.4-12.4); MONOCYTES ABSOLUTE AUTO 1.4 K/mm3 (0.0-0.8); MONOCYTES PERCENT AUTO 7.6 % (0.0-8.0); NEUTROPHILS ABSOLUTE AUTO 15.3 K/mm3 (1.8-7.7); NEUTROPHILS PERCENT AUTO 83.9 % (41.0-71.0); PLATELET COUNT,PLT 172 K/mm3 (150-400); RED BLOOD CELL COUNT 3.07 M/mm3 (4.52-5.90); WHITE BLOOD CELL COUNT,WBC 18.27 K/mm3 (3.9-11.3)
[2024-07-19 05:19] LABS: A/G RATIO 0.7 (1-2); ALBUMIN 2.4 g/dl (3.4-5.0); ANION GAP 12.9 (5-15); BILIRUBIN TOTAL 0.6 mg/dL (0.2-1.0); BUN/CREATININE RATIO 11.7 (14-18); C-REACTIVE PROTEIN 13.09 mg/dL (<0.30); CREATININE 0.6 mg/dL (0.7-1.3); EST CRCL DRUG DOSING (CG) 118.37 mL/min; MAGNESIUM 1.5 mg/dL (1.8-2.4); POTASSIUM,K 3.9 mEq/L (3.5-5.1); PROTEIN TOTAL,TP 6.1 g/dl (6.4-8.2)
[2024-07-19] MEDS: Magnesium Sulf/Wat 2 GM/50 mL 2 GM in Premix Bag 1 BAG IV ONE (08:47)
[2024-07-19] MEDS ORDERED: Metoprolol Succinate 25 MG Tab.ER PO SCH (09:00)
[2024-07-19] MEDS: Gabapentin 100 MG Cap PO SCH (10:33)
[2024-07-20] MEDS: Acetaminophen 325 MG Tab PO PRN (03:55)
[2024-07-20 04:36] LABS: BASOPHILS ABSOLUTE AUTO 0.1 K/mm3 (0.0-0.2); BASOPHILS PERCENT AUTO 0.3 % (0.0-1.0); EOSINOPHILS ABSOLUTE AUTO 0.2 K/mm3 (0.0-0.4); EOSINOPHILS PERCENT AUTO 1.2 % (0.0-6.0); HEMATOCRIT 27.9 % (42.0-52.0); HEMOGLOBIN 8.9 gm/dl (14.0-18.0); IMMATURE GRAN ABSOLUTE AUTO 0.06 K/mm3 (0.00-0.05); IMMATURE GRAN PERCENT AUTO 0.4 % (0.0-0.4); LYMPHOCYTES ABSOLUTE AUTO 1.6 K/mm3 (1.0-4.8); LYMPHOCYTES PERCENT AUTO 10.2 % (24.0-44.0); MEAN CORPUSCULAR HEMOGLOBIN 28.1 pg (28.0-32.0); MEAN CORPUSCULAR HGB CONC 31.9 g/dl (32.0-36.0); MEAN PLATELET VOLUME 10.5 fl (9.4-12.4); MONOCYTES ABSOLUTE AUTO 1.4 K/mm3 (0.0-0.8); MONOCYTES PERCENT AUTO 9.3 % (0.0-8.0); NEUTROPHILS ABSOLUTE AUTO 12.1 K/mm3 (1.8-7.7); NEUTROPHILS PERCENT AUTO 78.6 % (41.0-71.0); PLATELET COUNT,PLT 196 K/mm3 (150-400); RED BLOOD CELL COUNT 3.17 M/mm3 (4.52-5.90); WHITE BLOOD CELL COUNT,WBC 15.41 K/mm3 (3.9-11.3)
[2024-07-20 05:08] LABS: A/G RATIO 0.5 (1-2); ALBUMIN 2.1 g/dl (3.4-5.0); ANION GAP 10.9 (5-15); BILIRUBIN TOTAL 0.6 mg/dL (0.2-1.0); C-REACTIVE PROTEIN 19.59 mg/dL (<0.30); CALCIUM 8.1 mg/dL (8.5-10.1); CREATININE 0.6 mg/dL (0.7-1.3); EST CRCL DRUG DOSING (CG) 118.37 mL/min; MAGNESIUM 1.8 mg/dL (1.8-2.4); POTASSIUM,K 3.9 mEq/L (3.5-5.1); PROTEIN TOTAL,TP 6.1 g/dl (6.4-8.2)
[2024-07-20] MEDS: Piperacillin/Tazobactam 4.5 GM in Sodium Chloride 0.9% 100 ML IV ONE (07:42)
[2024-07-20] MEDS: Magnesium Sulf/Wat 2 GM/50 mL 2 GM in Premix Bag 1 BAG IV ONE (13:01)
[2024-07-20] MEDS: Piperacillin/Tazobactam 4.5 GM in Sodium Chloride 0.9% 100 ML IV SCH (15:49)
[2024-07-21 05:31] LABS: BASOPHILS PERCENT AUTO 0.4 % (0.0-1.0); EOSINOPHILS ABSOLUTE AUTO 0.6 K/mm3 (0.0-0.4); EOSINOPHILS PERCENT AUTO 5.7 % (0.0-6.0); HEMOGLOBIN 9.3 gm/dl (14.0-18.0); IMMATURE GRAN ABSOLUTE AUTO 0.03 K/mm3 (0.00-0.05); IMMATURE GRAN PERCENT AUTO 0.3 % (0.0-0.4); LYMPHOCYTES ABSOLUTE AUTO 1.7 K/mm3 (1.0-4.8); LYMPHOCYTES PERCENT AUTO 17.5 % (24.0-44.0); MEAN CORPUSCULAR HEMOGLOBIN 28.3 pg (28.0-32.0); MEAN CORPUSCULAR HGB CONC 32.1 g/dl (32.0-36.0); MEAN CORPUSCULAR VOLUME 88.1 fl (83.0-99.0); MEAN PLATELET VOLUME 9.8 fl (9.4-12.4); MONOCYTES PERCENT AUTO 10.6 % (0.0-8.0); NEUTROPHILS ABSOLUTE AUTO 6.4 K/mm3 (1.8-7.7); NEUTROPHILS PERCENT AUTO 65.5 % (41.0-71.0); PLATELET COUNT,PLT 251 K/mm3 (150-400); RED BLOOD CELL COUNT 3.29 M/mm3 (4.52-5.90); WHITE BLOOD CELL COUNT,WBC 9.74 K/mm3 (3.9-11.3)
[2024-07-21 06:13] LABS: A/G RATIO 0.5 (1-2); ALBUMIN 2.1 g/dl (3.4-5.0); ANION GAP 10.9 (5-15); BILIRUBIN TOTAL 0.5 mg/dL (0.2-1.0); BUN/CREATININE RATIO 8.6 (14-18); C-REACTIVE PROTEIN 14.06 mg/dL (<0.30); CALCIUM 8.3 mg/dL (8.5-10.1); CREATININE 0.7 mg/dL (0.7-1.3); EST CRCL DRUG DOSING (CG) 101.46 mL/min; MAGNESIUM 2.1 mg/dL (1.8-2.4); POTASSIUM,K 3.9 mEq/L (3.5-5.1); PROTEIN TOTAL,TP 6.1 g/dl (6.4-8.2)
[2024-07-21 13:41] VITALS: BP 112/70; PULSE 92
== END 2024-07-21 12:52 | disposition home or self-care (01) | DRG 698 ==
LOC: JD.ED 20:18 → JD.MS 07-18 07:38
PROVIDERS: ADMIT Family Medicine; ATTEND Student in an Organized Health Care Education/Training Program
DX: T83.511A Infection and inflammatory reaction due to indwelling urethral catheter, initial encounter (principal); A41.52 Sepsis due to Pseudomonas; R65.20 Severe sepsis without septic shock; N12 Tubulo-interstitial nephritis, not specified as acute or chronic; G72.81 Critical illness myopathy; E87.20 Acidosis, unspecified; N39.0 Urinary tract infection, site not specified; H54.7 Unspecified visual loss; I10 Essential (primary) hypertension; E78.00 Pure hypercholesterolemia, unspecified; K21.9 Gastro-esophageal reflux disease without esophagitis; Z96.659 Presence of unspecified artificial knee joint; R33.9 Retention of urine, unspecified; E83.42 Hypomagnesemia; R20.0 Anesthesia of skin; Y84.6 Urinary catheterization as the cause of abnormal reaction of the patient, or of later complication, without mention of misadventure at the time of the procedure; F41.9 Anxiety disorder, unspecified; F32.A Depression, unspecified; Z86.16 Personal history of COVID-19; Z95.2 Presence of prosthetic heart valve; Z88.5 Allergy status to narcotic agent; Z95.1 Presence of aortocoronary bypass graft; Z79.82 Long term (current) use of aspirin; Z85.828 Personal history of other malignant neoplasm of skin; Z98.49 Cataract extraction status, unspecified eye; Z90.89 Acquired absence of other organs; Z95.5 Presence of coronary angioplasty implant and graft; Z98.890 Other specified postprocedural states; Z79.899 Other long term (current) drug therapy; Z86.2 Personal history of diseases of the blood and blood-forming organs and certain disorders involving the immune mechanism
CPT/HCPCS: 36415; 51702 ×2; 51798; 71045; 74177; 80053; 81001; 83605 ×2; 85025; 87040 ×2; 87086; 87088; 87186; 96361 ×2; 96374; 96375 ×2; 99285; J0696; J1885; J2060; J7030 ×3; Q9967; 83735; 86140; 97116-GP; 97162-GP; 99223; 99232; 99233; 99239; 99284; A9270-GY; J1650; J2270; J2405; J2543; J3475